=== PATIENT | male | born 1995 | race Caucasian/White ===

== ENCOUNTER → 2017-06-13 | Outpatient (CLI) | payer BC ==
[~2017-06-13] MED LIST: AMOX500C2 PO; CEPH-38 PO; HYDR-1231 PO; HYDR-2890 PO; PRCD5U PO
--- NOTE | 2017-06-13 13:06 | Diagnostic Imaging Report ---
EXAMINATION: Ultrasound of the left breast. INDICATION: Left breast enlargement. FINDINGS: The diagnostic mammogram performed earlier today noted that there was considerably more fibroglandular tissue in the left breast than on the right. On this study, there is no discrete solid or cystic mass within the left breast. The right retroareolar region was also examined and was generally unremarkable. I suspect that the asymmetric fibroglandular tissue in the left breast is related to gynecomastia. If clinically indicated, a surgical consult would be recommended. IMPRESSION: 1. There is no discrete solid or cystic mass within either breast. The asymmetric fibroglandular tissue in the left breast is most likely related to gynecomastia. Recommendations as above. 2. These results were discussed with Dr. Hussain Lopez. ACR BI-RADS Category 1: Negative. Dictated by: Dictated on workstation # [id number]
--- NOTE | 2017-06-13 16:08 | Diagnostic Imaging Report ---
EXAMINATION: Unilateral diagnostic left mammogram. INDICATION: Left breast fullness. COMPARISON: No prior studies are available for comparison. TECHNIQUE: CC and MLO views of the left breast and an MLO view of the right breast were obtained. The current study was also evaluated with a Computer Aided Detection (CAD) system. FINDINGS: There is a considerable amount of fibroglandular tissue in the left breast. There is only a small amount of fibroglandular tissue in the right retroareolar region. I suspect that the asymmetry of the fibroglandular tissue of the left breast is due to gynecomastia as there does not appear to be any discrete solid mass identified. Even so, ultrasound would be recommended for further evaluation of the left breast. IMPRESSION: There is considerably more fibroglandular tissue within the left breast than the right. This is probably due to gynecomastia. Ultrasound is pending for further evaluation. ACR BI-RADS Category 0: Incomplete. (Needs additional imaging evaluation). Result letter will be mailed to the patient. Note: At least 10% of breast cancer is not imaged by mammography. Dictated by: Dictated on workstation # [id number]
== END ==
LOC: RAD 08:02
PROVIDERS: ATTEND Family Medicine
DX: N62 Hypertrophy of breast (principal); N64.89 Other specified disorders of breast
CPT/HCPCS: 76641

== ENCOUNTER 2017-10-09 22:37 | Emergency (ER) | payer BC ==
[~2017-10-09] VITALS: Ht 175.3 cm; Wt 72.6 kg
[2017-10-09] MEDS ORDERED: DEXAMETHASONE 10 MG/ML (DECADRON) 1 ML VIAL IM ONE (23:00)
--- NOTE | 2017-10-09 23:09 | ED Cough/URI ---
General Chief Complaint: Cough/Cold/Flu Symptoms Stated Complaint: COUGH/CHEST HEAVINESS/RUNNY NOSE Nursing Triage Note: PT TO ED 6 W/ C/O COUGH X2 WKS. DENIES SEEING PCP FOR C/O. 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 ALSO C/O CHEST PAIN W/ COUGH. NO OTHER C/O VOICED Source: patient Exam Limitations: no limitations History of Present Illness Date Seen by Provider: October 09, 2017 Time Seen by Provider: 22:50 Initial Comments Here with report of cough for the last 2 weeks. 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 His roommate had pneumonia. He is concerned that he has pneumonia. Reports he's had some fever and chills over the last couple of weeks. Cough is not better is intact worse tonight. Timing/Duration: week, getting worse Severity/Quality: moderate, dry cough Modifying Factors: Worse With Coughing; Improves With Rest Associated Symptoms: cough, fever/chills, nasal congestion Allergies and Home Medications Allergies Coded Allergies: Penicillins (Verified Allergy, 07/11/13) Home Medications Hydrocodone Bit/Acetaminophen 1 Each Tablet, 1 EACH PO Q4H PRN for PAIN Prescribed by: MUNIR VILLEDA on 07/11/13 8277 Patient Home Medication List Home Medication List Reviewed: Yes Review of Systems Constitutional: see HPI, chills, fever EENTM: nose congestion; No hoarseness, No throat pain Respiratory: cough; No short of breath, No wheezing Cardiovascular: no symptoms reported Gastrointestinal: no symptoms reported Skin: no symptoms reported Past Sxgetyx-Xofpkd-Nckjpc Hx Past Med/Social Hx: Reviewed Nursing Past Med/Soc Hx Patient Social History Alcohol Use: Denies Use Recreational Drug Use: No Smoking Status: Never a Smoker Recent Foreign Travel: No Contact w/Someone Who Travel: No Recent Infectious Disease Expo: No Recent Hopitalizations: No Physical Abuse: No Sexual Abuse: No Mistreated: No Fear: No Past Medical History Surgeries: No Respiratory: No Cardiac: No Neurological: No Reproductive Disorders: No Sexually Transmitted Disease: No Gastrointestinal: No Musculoskeletal: No Endocrine: No Cancer: No Psychosocial: No Nursing Suicide Risk Score: 0 Integumentary: No Blood Disorders: No Family Medical History Reviewed Nursing Family Hx Physical Exam Vital Signs Vital Signs - First Documented 10/09/17 22:46 Temp 98.6 Pulse 90 Resp 20 B/P (MAP) 133/91 (105) Pulse Ox 98 O2 Delivery Room Air Capillary Refill : Less Than 3 Seconds General Appearance: WD/WN, no apparent distress HEENT: PERRL/EOMI, pharyngeal erythema; No tonsillar exudate; other (erythema and some swelling to the uvula) Neck: full range of motion, supple Respiratory: lungs clear, normal breath sounds Cardiovascular: regular rate, rhythm, no murmur Neurologic/Psychiatric: alert, oriented x 3 Skin: normal color, warm/dry Progress/Results/Core Measures Suspected Sepsis Recent Fever Within 48 Hours: No Infection Criteria Present: None New/Unexplained Altered Menta: No Sepsis Screen: No Definite Risk SIRS Temperature:98.6 Pulse: 90 Respiratory Rate: 20 Blood Pressure 133 /91 Mean: 105 Results/Orders My Orders Orders - ILIANA JACKSON MD Chest Pa/Lat (2 View) (10/09/17 22:57) Dexamethasone Injection (Decadron Inject (10/09/17 23:00) Doxycycline Hyclate Tablet (Vibramycin T (10/09/17 23:16) Vital Signs/I&O 10/09/17 22:46 Temp 98.6 Pulse 90 Resp 20 B/P (MAP) 133/91 (105) Pulse Ox 98 O2 Delivery Room Air Capillary Refill : Less Than 3 Seconds Blood Pressure Mean: 105 Progress Note : Progress Note Seen and evaluated. Two-view chest x-ray ordered. Decadron 10 mg IM ordered. Monitor patient. Chest x-ray shows no acute findings. We will treat with doxycycline and for possible bronchitis/walking pneumonia given his 2 week history and exposure previously. Patient is agreeing with that plan. Discharged home with return precautions. Patient verbalize understanding instructions and agreement with plan. Diagnostic Imaging Diagonstic Imaging: Xray Plain Films/CT/US/NM/MRI: chest Comments Two-view chest x-ray shows no acute infiltrate Reviewed: Reviewed by Me Departure Impression Primary Impression: Upper respiratory infection Qualified Codes: J06.9 - Acute upper respiratory infection, unspecified Disposition: HOME, SELF-CARE Condition: Improved Departure-Patient Inst. Decision time for Depature: 23:24 Referrals: STEPHANIE MCKEON MD (PCP/Family) Primary Care Physician Patient Instructions: Bacterial Upper Respiratory Infection, Adult (DC) Add. Discharge Instructions: All discharge instructions reviewed with patient and/or family. Voiced understanding. You may take Claritin/loratadine 10 mg tablet daily as needed for allergy symptoms. Take other medications as directed. Drink plenty of fluids. Follow up with your Dr. in a few days for recheck if not improved. Return for worse pain, fever, vomiting, weakness, breathing problems or other concerns as needed. You may develop rash as a reaction to the antibiotic if you are exposing your skin to sun so limit sun exposure to prevent this complication. Scripts Doxycycline Hyclate (Doxycycline Hyclate) 100 Mg Tablet 100 MG PO BID, #19 TAB 0 Refills Prov: ILIANA JACKSON MD 10/09/17 ILIANA JACKSON MD October 09, 2017 23:09
[2017-10-09] MEDS ORDERED: DOXYCYCLINE 100 MG (VIBRAMYCIN) TABLET PO STA (23:16)
[2017-10-09] MEDS ORDERED: DOXY100T2 PO (23:26)
[2017-10-09 23:34] VITALS: BP 0/0
--- NOTE | 2017-10-10 06:54 | Diagnostic Imaging Report ---
INDICATION: Cough and congestion. PA and lateral views of the chest were obtained. FINDINGS: The heart size, mediastinal configuration, and pulmonary vascularity are within normal limits. There is no pleural effusion, pneumothorax, or pneumonia. The osseous structures are unremarkable. IMPRESSION: No acute cardiopulmonary abnormality. Dictated by: Dictated on workstation # [id number]
== END 2017-10-09 23:34 | disposition home or self-care (01) ==
LOC: EDUNIT# 22:37 → ER 22:39
DX: J06.9 Acute upper respiratory infection, unspecified (principal); Z88.0 Allergy status to penicillin
CPT/HCPCS: 71046; 96372

== ENCOUNTER 2017-10-26 16:00 | Emergency (ER) | payer BC ==
[~2017-10-26] VITALS: Ht 175.3 cm; Wt 79.4 kg
[~2017-10-26 16:00] MED LIST changes: +DOXY100T2 PO
--- OUTSIDE RECORDS SUMMARY | 2017-10-26 16:27 | XMS REPORT | Continuity of Care Document ---
Author Author [facility] Organization [facility] Address Unknown Phone Unavailable Allergies Active Description Code Type Severity Reaction Onset Reported/Identified Relationship to Patient Clinical Status Yes Penicillins [id number] Drug Allergy Unknown N/A 07/11/2013 Medications There is no data. Problems Date Dx Coded Attending Type Code Diagnosis Diagnosed By 07/11/2013 MUNIR SOTO Ot 815.03 FX METACARPAL SHAFT-CLOS 07/11/2013 MUNIR SOTO Ot 959.4 HAND INJURY NOS 07/11/2013 MUNIR SOTO Ot E000.8 OTHER EXTERNAL CAUSE STATUS 07/11/2013 MUNIR SOTO Ot E849.[address] NEC 07/11/2013 MUNIR SOTO Ot E958.8 SUICIDE/SELF-INJURY NEC 06/13/2017 COLTHARP DO, THALIA A Ot N63 UNSPECIFIED LUMP IN BREAST 06/14/2017 STEPHANIE MCKEON MD, Ot N62 HYPERTROPHY OF BREAST 06/14/2017 STEPHANIE MCKEON MD Ot N64.89 OTHER SPECIFIED DISORDERS OF BREAST 06/22/2017 STEPHANIE MCKEON MD, Ot N62 HYPERTROPHY OF BREAST 06/22/2017 STEPHANIE MCKEON MD, Ot N64.89 OTHER SPECIFIED DISORDERS OF BREAST 08/02/2017 STEPHANIE MCKEON MD, Ot N62 HYPERTROPHY OF BREAST 08/02/2017 STEPHANIE MCKEON MD, Ot N64.89 OTHER SPECIFIED DISORDERS OF BREAST 08/03/2017 STEPHANIE MCKEON MD, Ot N62 HYPERTROPHY OF BREAST 08/03/2017 STEPHANIE MCKEON MD, Ot N64.89 OTHER SPECIFIED DISORDERS OF BREAST 2017 STEPHANIE MCKEON MD, Ot N62 HYPERTROPHY OF BREAST 2017 STEPHANIE MCKEON MD, Ot N64.89 OTHER SPECIFIED DISORDERS OF BREAST 2017 ILIANA JACKSON MD Ot J06.9 ACUTE UPPER RESPIRATORY INFECTION, UNSPE 2017 ILIANA JACKSON MD Ot R05 COUGH 2017 ILIANA JACKSON MD, Ot Z88.0 ALLERGY STATUS TO PENICILLIN 10/11/2017 ILIANA JACKSON MD Ot J06.9 ACUTE UPPER RESPIRATORY INFECTION, UNSPE 10/11/2017 ILIANA JACKSON MD Ot R05 COUGH 10/11/2017 ILIANA JACKSON MD, Ot Z88.0 ALLERGY STATUS TO PENICILLIN Procedures There is no data. Results There is no data. Encounters ACCT No. Visit Date/Time Discharge Status Pt. Type Provider Facility Loc./Unit Complaint [id number] 2017 22:39:00 2017 23:34:00 DIS Emergency ILIANA JACKSON MD [facility] ER COUGH/CHEST HEAVINESS/ RUNNY NOSE [id number] 06/13/2017 08:02:00 06/13/2017 23:59:59 CLS Outpatient STEPHANIE MCKEON MD [facility] RAD LT BREAST ENLARGEMENT [id number] 05/06/2015 10:38:00 05/06/2015 23:59:59 CLS Outpatient COLTHALIA VAZQUEZ DO [facility] RAD PAINFUL BREAST MASS [id number] 07/11/2013 19:05:00 07/11/2013 22:00:00 DIS Emergency MUNIR SOTO [facility] ER L HAND INJ
[2017-10-26] MEDS ORDERED: LACTATED RINGERS 1,000 ML IV ONE (16:51)
[2017-10-26 17:24] LABS: BASOPHILS % (AUTO) 0 % (0-10); EOSINOPHILS # (AUTO) 0.1 10^3/uL (0.0-0.3); EOSINOPHILS % (AUTO) 1 % (0-10); HEMATOCRIT 46 % (40-54); HEMOGLOBIN 15.7 G/DL (13.3-17.7); LYMPHOCYTES # (AUTO) 1.6 X 10^3 (1.0-4.0); LYMPHOCYTES % (AUTO) 19 % (12-44); MEAN CORPUSCULAR HEMOGLOBIN 30 PG (25-34); MEAN CORPUSCULAR HGB CONC 34 G/DL (32-36); MEAN CORPUSCULAR VOLUME 88 FL (80-99); MEAN PLATELET VOLUME 9.6 FL (7.4-10.4); MONOCYTES # (AUTO) 0.5 X 10^3 (0.0-1.0); MONOCYTES % (AUTO) 6 % (0-12); NEUTROPHILS # (AUTO) 6.4 X 10^3 (1.8-7.8); NEUTROPHILS % (AUTO) 74 % (42-75); PLATELET COUNT 316 10^3/uL (130-400); RED BLOOD COUNT 5.26 10^6/uL (4.35-5.85); RED CELL DISTRIBUTION WIDTH 12.5 % (10.0-14.5); WHITE BLOOD COUNT 8.6 10^3/uL (4.3-11.0)
--- NOTE | 2017-10-26 17:38 | ED General ---
General Chief Complaint: Exposure Stated Complaint: DEHYDRATED Nursing Triage Note: Pt felt like he was overheated at work outside today. Vomiting reported. 90 degree plus temps today. [place] and was exposed to the sun. DC'd doxycyline Rx last after being diagnosed with pneumonia. Nursing Sepsis Screen: No Definite Risk Source of Information: Patient Exam Limitations: No Limitations History of Present Illness Date Seen by Provider: October 26, 2017 Time Seen by Provider: 16:40 Initial Comments This 22-year-old gentleman presents to the emergency room with complaints of feeling dehydrated. He [place] the [place]. He was in the sun much of the time and also drank heavily one day. 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 After about 2 hours he was feeling very dehydrated. Symptoms included vomiting, dizziness and muscle cramping. He is no longer nauseated. He reports he's been producing very little urine and it is dark. He also has a fairly fine maculopapular rash around his trunk and proximal extremities. He just recently finished a course of doxycycline on October 20. His rash started October 22. He is suspicious that the rash is related to sun sensitivity after taking doxycycline. The rash is pruritic. He denies any sore throat or fever. Allergies and Home Medications Allergies Coded Allergies: Penicillins (Verified Allergy, 07/11/13) Home Medications Azithromycin 250 Mg Tablet, 250 MG PO UD TAKE 2 TABLETS ON DAY ONE THEN TAKE 1 TABLET DAILY FOR FOUR MORE DAYS Prescribed by: JANICE LUGO on 10/26/17 1830 Doxycycline Hyclate 100 Mg Tablet, 100 MG PO BID Prescribed by: ILIANA JACKSON on 10/09/17 2326 Hydrocodone Bit/Acetaminophen 1 Each Tablet, 1 EACH PO Q4H PRN for PAIN Prescribed by: MUNIR VILLEDA on 07/11/13 214 Patient Home Medication List Home Medication List Reviewed: Yes Review of Systems Constitutional: see HPI, weakness EENTM: no symptoms reported Respiratory: see HPI Cardiovascular: see HPI Gastrointestinal: see HPI Genitourinary: see HPI Musculoskeletal: see HPI Skin: see HPI Psychiatric/Neurological: See HPI Hematologic/Lymphatic: No Symptoms Reported Immunological/Allergic: no symptoms reported Past Wvrzqid-Rfgvdj-Bzdpmo Hx Past Med/Social Hx: Reviewed Nursing Past Med/Soc Hx Patient Social History Alcohol Use: Occasionally Uses Recreational Drug Use: No Smoking Status: Never a Smoker Recent Foreign Travel: No Contact w/Someone Who Travel: No Recent Infectious Disease Expo: No Recent Hopitalizations: No Past Medical History Surgeries: No Respiratory: No Cardiac: No Neurological: No Reproductive Disorders: No Sexually Transmitted Disease: No Genitourinary: No Gastrointestinal: No Musculoskeletal: No Endocrine: No HEENT: No Cancer: No Psychosocial: No Integumentary: No Blood Disorders: No Physical Exam Vital Signs Vital Signs - First Documented 10/26/17 16:20 Temp 97.5 Pulse 100 Resp 18 B/P (MAP) 114/74 (87) Pulse Ox 98 O2 Delivery Room Air Capillary Refill : Less Than 3 Seconds General Appearance: No Apparent Distress, WD/WN HEENT: PERRL/EOMI, Normal ENT Inspection, Pharynx Normal Neck: Normal Inspection Respiratory: Lungs Clear, Normal Breath Sounds, No Accessory Muscle Use, No Respiratory Distress Cardiovascular: No Edema, No Murmur, Normal Peripheral Pulses, Tachycardia Gastrointestinal: Normal Bowel Sounds, Non Tender, Soft Extremity: Normal Inspection, No Pedal Edema Neurologic/Psychiatric: Alert, Oriented x3, No Motor/Sensory Deficits, Normal Mood/Affect, agronomist II-XII Norm as Tested Skin: Warm/Dry, Rash (mild generalized sunburn in sun exposed areas. A maculopapular rash on the trunk and proximal extremities.) Progress/Results/Core Measures Suspected Sepsis Recent Fever Within 48 Hours: No Infection Criteria Present: Suspected New Infection New/Unexplained Altered Menta: No Sepsis Screen: No Definite Risk SIRS Temperature:97.5 Pulse: 100 Respiratory Rate: 18 Laboratory Tests 10/26/17 17:22: White Blood Count 8.6 Blood Pressure 114 /74 Mean: 87 Laboratory Tests 10/26/17 17:22: Creatinine 1.10, Platelet Count 316, Total Bilirubin 0.6 Results/Orders Lab Results Laboratory Tests Test 10/26/17 17:22 Range/Units White Blood Count 8.6 4.3-11.0 10^3/uL Red Blood Count 5.26 4.35-5.85 10^6/uL Hemoglobin 15.7 13.3-17.7 G/DL Hematocrit 46 40-54 % Mean Corpuscular Volume 88 80-99 FL Mean Corpuscular Hemoglobin 30 25-34 PG Mean Corpuscular Hemoglobin Concent 34 32-36 G/DL Red Cell Distribution Width 12.5 10.0-14.5 % Platelet Count 316 130-400 10^3/uL Mean Platelet Volume 9.6 7.4-10.4 FL Neutrophils (%) (Auto) 74 42-75 % Lymphocytes (%) (Auto) 19 12-44 % Monocytes (%) (Auto) 6 0-12 % Eosinophils (%) (Auto) 1 0-10 % Basophils (%) (Auto) 0 0-10 % Neutrophils # (Auto) 6.4 1.8-7.8 X 10^3 Lymphocytes # (Auto) 1.6 1.0-4.0 X 10^3 Monocytes # (Auto) 0.5 0.0-1.0 X 10^3 Eosinophils # (Auto) 0.1 0.0-0.3 10^3/uL Basophils # (Auto) 0.0 0.0-0.1 10^3/uL Sodium Level 141 135-145 MMOL/L Potassium Level 4.1 3.6-5.0 MMOL/L Chloride Level 106 98-107 MMOL/L Carbon Dioxide Level 24 21-32 MMOL/L Anion Gap 11 5-14 MMOL/L Blood Urea Nitrogen 12 7-18 MG/DL Creatinine 1.10 0.60-1.30 MG/DL Estimat Glomerular Filtration Rate > 60 BUN/Creatinine Ratio 11 Glucose Level 75 70-105 MG/DL Calcium Level 9.4 8.5-10.1 MG/DL Magnesium Level 2.3 1.8-2.4 MG/DL Total Bilirubin 0.6 0.1-1.0 MG/DL Aspartate Amino Transf (AST/SGOT) 38 H 5-34 U/L Alanine Aminotransferase (ALT/SGPT) 61 H 0-55 U/L Alkaline Phosphatase 66 40-136 U/L Total Protein 7.5 6.4-8.2 GM/DL Albumin 4.5 3.2-4.5 GM/DL My Orders Orders - JANICE GAVIN MD Cbc With Automated Diff (10/26/17 16:51) Comprehensive Metabolic Panel (10/26/17 16:51) Magnesium (10/26/17 16:51) Saline Lock/Iv-Start (10/26/17 16:51) Lactated Ringers (Lr 1000 Ml Iv Solution (10/26/17 16:51) Medications Given in ED Vital Signs/I&O Capillary Refill : Less Than 3 Seconds Blood Pressure Mean: 87 Progress Note : Time: 17:39 Progress Note Patient seen and examined. Labs were ordered. A liter of lactated ringer is infusing. Departure Impression Primary Impression: Nausea and vomiting Qualified Codes: R11.2 - Nausea with vomiting, unspecified Additional Impressions: Muscle cramping Rash History of pneumonia Disposition: HOME, SELF-CARE Condition: Improved Departure-Patient Inst. Decision time for Depature: 18:28 Referrals: STEPHANIE MCKEON MD (PCP/Family) Primary Care Physician Patient Instructions: Heat Rash Add. Discharge Instructions: Return home and rest in a cool environment for the remainder of the evening. Drink plenty of clear liquids and eat a well-balanced diet. Your rash is nonspecific. It may be heat rash, sun sensitivity due to doxycycline, or infectious in nature. If you have persistent symptoms of pneumonia, recurrent fever, sore throat, or other signs of infectious illness, you may completely azithromycin as prescribed. Return to care if you have significant worsening symptoms. All discharge instructions reviewed with patient and/or family. Voiced understanding. Scripts Azithromycin (Azithromycin) 250 Mg Tablet 250 MG PO UD, #6 TAB TAKE 2 TABLETS ON DAY ONE THEN TAKE 1 TABLET DAILY FOR FOUR MORE DAYS Prov: JANICE GAVIN MD 10/26/17 JANICE GAVIN MD October 26, 2017 17:38
[2017-10-26 17:49] LABS: ALANINE AMINOTRANSFERASE 61 U/L (0-55); ALBUMIN 4.5 GM/DL (3.2-4.5); ALKALINE PHOSPHATASE 66 U/L (40-136); BILIRUBIN,TOTAL 0.6 MG/DL (0.1-1.0); BUN/CREATININE RATIO 11; CALCIUM 9.4 MG/DL (8.5-10.1); CARBON DIOXIDE 24 MMOL/L (21-32); CHLORIDE 106 MMOL/L (98-107); GFR ESTIMATED > 60; GLUCOSE 75 MG/DL (70-105); MAGNESIUM 2.3 MG/DL (1.8-2.4); POTASSIUM 4.1 MMOL/L (3.6-5.0); SODIUM 141 MMOL/L (135-145); TOTAL PROTEIN 7.5 GM/DL (6.4-8.2)
[2017-10-26] MEDS ORDERED: AZIT250T12 PO (18:30)
[2017-10-26 18:40] VITALS: BP 114/74
== END 2017-10-26 18:41 | disposition home or self-care (01) ==
LOC: EDUNIT# 16:00 → ER 16:01
DX: R11.2 Nausea with vomiting, unspecified (principal); R25.2 Cramp and spasm; R21 Rash and other nonspecific skin eruption; Z87.01 Personal history of pneumonia (recurrent); Z88.0 Allergy status to penicillin
CPT/HCPCS: 36415; 80053; 83735; 85025; 96360